=== PATIENT | male | born 1950 | race Caucasian/White ===

== ENCOUNTER → 2024-01-11 11:42 | Outpatient (REF) | payer OTHER, SELFPAY | LOC: RAD 11:42 | PROVIDERS: ATTENDING PHYSICIAN Nurse Practitioner Family; FAMILY PHYSICIAN Family Medicine | DX: M21.611 Bunion of right foot (principal) | CPT/HCPCS: 73630 ==

== ENCOUNTER 2024-01-14 07:43 | Emergency (ER) | payer OTHER, SELFPAY ==
[2024-01-14 07:44] VITALS: BP 168/70
--- NOTE | 2024-01-14 07:54 | EDRN ---
Douglas CADET currently at the pts bedside
--- NOTE | 2024-01-14 08:25 | ED.GENMED ---
History of Present Illness
General
Chief Complaint: Musculo-Skeletal Complaint
Time Seen by Provider: 01/14/24 07:48
History of Present Illness
History of Present Illness:
73-year-old male presents to the emergency department for evaluation of right shoulder pain for the past 3 days. States it may have been injured initially while he was walking his dog, states his dog pulls the arm frequently. He then went to a
'stretch therapy' appointment yesterday and had exquisite pain with movement of the shoulder. He is unable to move the shoulder on his own. On chronic meloxicam
Review of Systems
Review of Systems
Allergies reviewed?: Yes
All Other Systems: ROS reviewed and negative except as documented in HPI and ROS
Phy Exam
Physical Exam
Physical Exam:
GEN: Well appearing, NAD, WDWN
HEENT: Oral mucosa moist, no scleral icterus
Cardiac: Regular rate
Lung: No respiratory distress, no tachypnea
MSK: No gross deformity or injuries. Right shoulder is grossly nontender to palpation. No crepitus with passive range of motion, minimal to no pain with passive range of motion.
Skin: Good color, no pallor or jaundice, no rashes
Neuro: AO x3, moves all extremities freely
Psych: Calm, cooperative
Course
Orders/Labs/Results
Orders:
Orders
01/14/24 08:13
CR Shoulder - Right Min 2 View Urgent
Comment:
Reason For Exam: non traumatic pain
01/14/24 08:55
Triamcinolone Acetonide [Kenalog-10] 5 mg INTRAARTIC NOW STA
Vital Signs
Initial and Last Documented VS:
Initial Vital Signs
Temp Pulse Resp BP Pulse Ox
97.8 F 69 16 168/70 98
01/14/24 07:44 01/14/24 07:44 01/14/24 07:44 01/14/24 07:44 01/14/24 07:44
Last Documented Vital Signs
Temp Pulse Resp BP Pulse Ox
98.5 F 86 20 131/82 99
01/14/24 08:44 01/14/24 08:44 01/14/24 08:44 01/14/24 08:44 01/14/24 08:44
MDM/Problems Addressed
MDM/Problems Addressed:
X-ray shows no evidence of acute disease. Patient was given a right intra-articular joint injection of triamcinolone 5 mg recommend outpatient orthopedic follow-up
*Critical Care Note
Total Time (30-74mins, 75-104mins- exclusive of procedures): Not Applicable
ED Attending Note
-
Portions of this chart may have been created with voice recognition software.� Occasional wrong word or��sound alike� substitutions may have occurred due to the inherent limitations of voice recognition software.
Discharge Plan
Departure
Patient Disposition: Home (Routine Discharge)
Date of Disposition: 01/14/24
Time of Disposition: 09:38
Patient with high blood pressure during this ER visit?: No
Discharge Problem:
Acute pain of right shoulder
Instructions: Bursitis ED
Prescriptions:
No Action
atorvastatin 40 mg Tablet
40 mg PO DAILY
chlorthalidone 25 mg Tablet
25 mg PO DAILY
amlodipine 5 mg Tablet
5 mg PO DAILY
aspirin 81 mg Tablet,Delayed Release (Dr/Ec)
81 mg PO DAILY
sildenafil [Viagra] 100 mg Tablet
100 mg PO DAILY PRN (Reason: sexual activity)
metformin 1,000 mg Tablet
1,000 mg PO BID
losartan 25 mg Tablet
25 mg PO DAILY
omeprazole 20 mg Tablet,Delayed Release (Dr/Ec)
20 mg PO DAILY
Jardiance 10 mg Tablet
10 mg PO DAILY
potassium
2 tab PO BID
Patient Comments:
pt does not know mg
Referrals:
Franc Quintanilla MD [Active] -
Jonathan Cabrales MD [Family Provider] -
Interventions
Interventions:
*Risk Screen - Suicide Last Done: 01/14/24 07:44
*General Assessment Last Done: 01/14/24 08:44
*Neglect/Abuse Screening Last Done: 01/14/24 07:44
ED- Fall Risk Assessment Last Done: 01/14/24 08:44
*ED COVID-19 Vaccine History Last Done: 01/14/24 08:44
*Nursing Disposition Last Done: 01/14/24 09:58
ED-Musculoskeletal Assessment Last Done: 01/14/24 08:44
Discharge Date and Time
Discharge Date/Time: 01/14/24 09:58
Print Language: [place]
[2024-01-14 08:44] VITALS: BP 131/82; BMI 27.5
[2024-01-14] MEDS: KENALOG-10 5 MG INTRAARTIC (09:31)
== END 2024-01-14 09:58 | disposition home or self-care (01) ==
LOC: EMR 07:43
PROVIDERS: EMERGENCY PHYSICIAN Emergency Medicine; FAMILY PHYSICIAN Family Medicine
DX: M25.511 Pain in right shoulder (principal)
CPT/HCPCS: 99284; 20610; 73030

== ENCOUNTER → 2024-07-21 13:55 | Outpatient (REF) | payer OTHER, SELFPAY ==
[2024-07-21 15:17] LABS: % Basophils 0.5 % (0-2); % Eosinophils 3.2 % (0-6); % Immature Granulocytes 0.4 % (0-0.5); % Lymphocytes 13.6 % (20.5-51.1); % Monocytes 6.1 % (1.7-9.3); % Neutrophils 76.2 % (42.2-75.2); Absolute Eosinophils 0.2 10^3/uL (0-0.7); Absolute Monocytes 0.5 10^3/uL (0.1-0.6); Absolute Neutrophils 5.6 10^3/uL (1.4-6.5); Hematocrit 46.2 % (39.0-52.0); Hemoglobin 15.5 g/dL (13.0-18.0); Mean Corp Hgb Conc. 33.5 g/dL (33.0-37.0); Mean Corpuscular Hgb 28.6 pg (27.0-31.0); Mean Corpuscular Volume 85.2 fL (80.0-94.0); Mean Platelet Volume 10.6 fL (7.4-10.4); Nucleated Red Blood Cells % 0 % (-); Platelet Count 234 10^3/uL (130-400); Red Blood Cell Count 5.42 10^6/uL (4.70-6.10); Red Cell Dist. Width 13.7 % (11.5-14.5); White Blood Cell Count 7.4 10^3/uL (4.8-10.8)
[2024-07-21 15:47] LABS: Blood Urea Nitrogen 26 mg/dl (9-20); Calcium 9.9 mg/dl (8.4-10.2); Carbon Dioxide 31 mmol/L (22-30); Chloride 99 mmol/L (98-107); Glucose 144 mg/dl (70-99); Potassium 3.6 mmol/L (3.5-5.1); Sodium 138 mmol/L (135-145); eGFR > 60.00
== END ==
LOC: REG 13:55
PROVIDERS: ATTENDING PHYSICIAN Specialist
DX: Z01.818 Encounter for other preprocedural examination (principal)
CPT/HCPCS: 36415; 80048; 85025; 93005